=== PATIENT | female | born 1965 | race American Indian/Alaskan Native ===

== ENCOUNTER 2019-10-20 16:58 | Inpatient (IN) | payer OTHER ==
[2019-10-20] MEDS ORDERED: ASPIRIN 81 MG TAB CHEW PO ONE (17:07)
[2019-10-20] MEDS ORDERED: HEPARIN 1,000 UNIT/1 ML VIAL IV ONE (17:07)
[2019-10-20] MEDS ORDERED: SODIUM CHLORIDE 0.9% 1000 ML 1,000 ML IV ONE (17:07)
[2019-10-20] MEDS ORDERED: NITROGLYCERIN 0.4 MG TAB SUBL SL PRN (17:15)
[2019-10-20] MEDS ORDERED: MORPHINE 4 MG/1 ML INJ IV ONE (17:15)
--- NOTE | 2019-10-20 17:20 | Emergency Department Report ---
ED Chest Pain HPI - General Chief Complaint: Chest Pain Stated Complaint: CHEST PAIN Time Seen by Provider: 10/20/19 17:07 Source: patient Mode of arrival: Ambulatory Limitations: No Limitations - History of Present Illness Initial Comments: Patient is a 54-year-old F Spanish female who is presenting with chest pain. Patient states last night she had brief episodes of chest discomfort in the center chest. She assumed it was indigestion. She has been taken antacids. States pain resolved spontaneously last night. She was able to rest comfortably at night. This morning patient woke up fine but was at an appointment approximately hour ago when she started having chest pain again. She states that heavy sensation and burning sensation in the chest. She has some mild shortness of breath but denies diaphoresis or nausea vomiting. - Related Data Allergies Allergy/AdvReac Type Severity Reaction Status Date / Time Sulfa (Sulfonamide Allergy Unknown Verified 10/20/19 17:11 Antibiotics) Heart Score - HEART Score History: Highly suspicious EKG: Significant ST-depression Age: 45-65 Risk factors: 1-2 risk factors Troponin: < normal limit HEART Score: 6 ED Review of Systems ROS: Stated complaint: CHEST PAIN Other details as noted in HPI Comment: All other systems reviewed and negative ED Past Medical Hx - Past Medical History Hx Hypertension: Yes Hx Asthma: Yes Additional medical history: bronchitis - Surgical History Past Surgical History?: No ED Physical Exam - General Limitations: No Limitations General appearance: alert, anxious - Head Head exam: Present: atraumatic, normocephalic - Eye Eye exam: Present: normal appearance, PERRL, EOMI - ENT ENT exam: Present: mucous membranes moist - Neck Neck exam: Present: normal inspection - Respiratory Respiratory exam: Present: normal lung sounds bilaterally. Absent: respiratory distress, wheezes, rales, rhonchi - Cardiovascular Cardiovascular Exam: Present: regular rate, normal rhythm, normal heart sounds. Absent: systolic murmur, diastolic murmur, rubs, gallop - GI/Abdominal GI/Abdominal exam: Present: soft, normal bowel sounds. Absent: distended, tenderness, guarding, rebound - Extremities Exam Extremities exam: Present: normal inspection - Back Exam Back exam: Present: normal inspection - Neurological Exam Neurological exam: Present: alert, oriented X3 - Psychiatric Psychiatric exam: Present: normal affect, normal mood - Skin Skin exam: Present: warm, dry, intact, normal color. Absent: rash KALPANA score - Kalpana Score Age > 65: (0) No Aspirin use within the Past 7 Days: (0) No 3 or more CAD Risk Factors: (0) No 2 or more Angina events in past 24 hrs: (1) Yes Known CAD with more than 50% Stenosis: (0) No Elevated Cardiac Markers: (0) No ST Deviation Greater than 0.5mm: (0) No KALPANA Score: 1 ED Medical Decision Making - EKG Data -: EKG Interpreted by Me - EKG Data 10/20/19 17:20 EKG shows sinus rhythm at a rate of 99. Shirley is normal intervals are normal. There is ST elevation in the inferior leads. ST depression in V1 to V2. There is a consistent with an inferior infarct. - Medical Decision Making EKG was sent to our concrete floor installer and he agrees that the patient is having a STEMI. Patient will be given aspirin and a heparin bolus and the STEMI team has been activated. Critical care attestation.: If time is entered above; I have spent that time in minutes in the direct care of this critically ill patient, excluding procedure time. ED Disposition Clinical Impression: STEMI (ST elevation myocardial infarction) Qualifiers: Involved coronary artery: unspecified coronary artery Qualified Code(s): I21.3 - ST elevation (STEMI) myocardial infarction of unspecified site Disposition: OP ADMIT IP TO THIS HOSP Is pt being admited?: Yes Does the pt Need Aspirin: No Condition: Stable Time of Disposition: 17:21
[2019-10-20 17:29] LABS: Basophils # (Auto) 0.1 K/mm3 (0.0-0.1); Basophils % (Auto) 1.5 % (0.0-1.8); Eosinophils # (Auto) 0.2 K/mm3 (0.0-0.4); Eosinophils % (Auto) 3.1 % (0.0-4.3); Hematocrit 30.3 % (30.3-42.9); Hemoglobin 9.9 gm/dl (10.1-14.3); Lymphocytes # (Auto) 3.1 K/mm3 (1.2-5.4); Lymphocytes % (Auto) 42.2 % (13.4-35.0); Mean Corpuscular HGB Conc 33 % (30-34); Mean Corpuscular Volume 88 fl (79-97); Monocytes # (Auto) 0.7 K/mm3 (0.0-0.8); Monocytes % (Auto) 9.9 % (0.0-7.3); Platelet Count 557 K/mm3 (140-440); Red Blood Count 3.44 M/mm3 (3.65-5.03); Red Cell Distribution Width 18.4 % (13.2-15.2)
[2019-10-20] MEDS ORDERED: HEPARIN/NS 5000 UNIT/500ML 1,000 ML IR ONE (17:37)
[2019-10-20] MEDS ORDERED: NITROGLYCERIN SYRINGE 3 ML ONE (17:38)
[2019-10-20] MEDS ORDERED: LIDOCAINE (2%) 20 MG/1 ML VIAL 20 ML MDV INFILTRATI ONE (17:38)
[2019-10-20] MEDS ORDERED: HEPARIN 10,000 UNITS/10 ML VIAL ONE (17:49)
[2019-10-20] MEDS: fentaNYL 100 MCG/2 ML INJ ONE ×2 (17:51→18:08)
[2019-10-20 17:53] LABS: Creatine Kinase MB 2.1 ng/mL (0.0-4.0)
[2019-10-20] MEDS: MIDAZOLAM 2 MG/2 ML INJ ONE ×2 (17:53→18:08)
[2019-10-20 17:54] LABS: BUN/Creatinine Ratio 13; Blood Urea Nitrogen 8 mg/dL (7-17); Hemolysis Index 34
[2019-10-20] MEDS: VERAPAMIL 5 MG/2 ML INJ ONE ×2 (17:54→17:58)
[2019-10-20] MEDS: HEPARIN 10,000 UNITS/10 ML VIAL ONE ×5 (17:55→19:34)
[2019-10-20] MEDS ORDERED: HEPARIN/NS 5000 UNIT/500ML 500 ML IR ONE (17:59)
[2019-10-20 18:06] LABS: INR 0.94 (0.87-1.13)
[2019-10-20 18:07] LABS: Partial Thromboplastin Time 31.9 Sec. (24.2-36.6)
[2019-10-20] MEDS ORDERED: SODIUM CHLORIDE 0.9% 1000 ML 1,000 ML ONE (18:28)
[2019-10-20] MEDS: MORPHINE 10 MG/1 ML INJ ONE ×2 (18:36→18:41)
[2019-10-20] MEDS ORDERED: ATROPINE 0.1% (1 MG/10 ML) CARDIAC SYRINGE ONE ×2 (19:07→19:16)
[2019-10-20] MEDS ORDERED: DOPamine/D5W 800 MG/250 ML 800 MG/250 ML BAG IV ONE (19:09)
[2019-10-20] MEDS ORDERED: LIDOCAINE PF 100 MG/5 ML (CARDIAC SYRINGE) IV ONE (19:16)
[2019-10-20] MEDS ORDERED: EPINEPHrine 1:10,000 1 MG/10 ML SYRINGE ONE (19:16)
[2019-10-20] MEDS ORDERED: PHENYLEPHRINE/NS 1,000 MCG/10 ML SYRINGE (OR USE) IV ONE (19:16)
[2019-10-20] MEDS ORDERED: ALBUTEROL 2.5 MG/3 ML NEBU IH PRN (19:21)
--- NOTE | 2019-10-20 19:23 | History and Physical Report ---
History of Present Illness Chief complaint: My chest hurts History of present illness: 54 YO Female with HTN, Asthma presents to ED for evaluation. Patient states that she has experienced pain in her chest over the past 1 day with worsening symptoms over the past 8 hours. Patient states that she initially thought that her pain was due to acid indigestion and took several antacid tablets with mild improvement of symptoms. Patient states that she awoke this morning with persistently worsening symptoms. Patient states that her pain is 6/10, midsternal, nonradiating, worsened with exertion, were relieved with rest, crushing in nature, sharp. Patient transported to [facility] via private vehicle for further care and evaluation. Patient seen and evaluated in the emergency department. Lab and imaging studies reviewed. EKG revealed evidence of ST elevation [place]. Cardiology team consulted in ED. Patient taken urgently to cardiac Architectural Sales Consultant for cardiac intervention. Patient denies fever, chills, productive cough, unilateral leg swelling, prolonged travel/immobility, skin rash, individual/family history of DVT/bleeding/blood clotting disorders, bright red blood per rectum, trauma, or known ill contacts. No prior admission for review. No medication listed at time of admission for reconciliation. Past History Past Medical History: hypertension, other (See HPI) Past Surgical History: No surgical history, Other (Reviewed) Social history: single. denies: smoking, alcohol abuse, prescription drug abuse Family history: hypertension Medications and Allergies Allergies Allergy/AdvReac Type Severity Reaction Status Date / Time Sulfa (Sulfonamide Allergy Unknown Verified 10/20/19 17:18 Antibiotics) Active Meds: Active Medications Sodium Chloride (Nacl 0.9% 1000 Ml) 1,000 mls @ 42 mls/hr IV ONCE ONE Stop: 10/21/19 16:55 Last Admin: 10/20/19 17:22 Dose: 42 mls/hr Documented by: Nitroglycerin (Nitrostat) 0.4 mg SL .Q5MIN PRN PRN Reason: Chest Pain Last Admin: 10/20/19 17:25 Dose: 0.4 mg Documented by: Sodium Chloride (Sodium Chloride Flush Syringe 10 Ml) 10 ml IV BID CHUCHO Sodium Chloride (Sodium Chloride Flush Syringe 10 Ml) 10 ml IV PRN PRN PRN Reason: LINE FLUSH Review of Systems Constitutional: no weight loss, no weight gain, no fever, no chills Ears, nose, mouth and throat: no ear pain, no ear discharge, no tinnitis, no nose pain Breasts: no change in shape, no mass Cardiovascular: chest pain, no orthopnea, no palpitations, no rapid/irregular heart beat, no edema, no syncope Respiratory: no cough, no cough with sputum Gastrointestinal: no abdominal pain, no nausea, no diarrhea, no constipation Genitourinary Female: no dysmenorrhea, no pelvic pain, no flank pain, no dysuria Rectal: no pain, no incontinence, no bleeding Musculoskeletal: no neck stiffness, no neck pain, no shooting arm pain, no low back pain Integumentary: no rash, no pruritis, no redness, no sores, no jaundice Neurological: no head injury, no paralysis, no parathesias, no seizures, no syncope, no tremors Psychiatric: no anxiety, no memory loss, no change in sleep habits, no hypersomnia, no change in appetite, no change in libido Endocrine: no cold intolerance, no excessive thirst, no polydipsia, no polyuria Hematologic/Lymphatic: no easy bruising, no easy bleeding Allergic/Immunologic: no urticaria, no allergic rhinitis, no persistent infections, no angioedema Exam - Constitutional Vitals: Temp Pulse Resp BP Pulse Ox 97.8 F 93 H 16 118/69 100 10/20/19 17:16 10/20/19 17:16 10/20/19 17:24 10/20/19 17:16 10/20/19 17:19 General appearance: Present: no acute distress - EENT Eyes: Present: PERRL ENT: hearing intact, clear oral mucosa - Neck Neck: Present: supple, normal ROM - Respiratory Respiratory effort: normal Respiratory: bilateral: CTA - Cardiovascular Heart Sounds: Present: S1 & S2. Absent: rub, click - Extremities Extremities: pulses symmetrical, No edema Peripheral Pulses: within normal limits - Abdominal General gastrointestinal: Present: soft, non-tender, non-distended, normal bowel sounds Female genitourinary: Present: normal - Integumentary Integumentary: Present: clear, warm, dry - Musculoskeletal Musculoskeletal: gait normal, strength equal bilaterally - Psychiatric Psychiatric: appropriate mood/affect, intact judgment & insight - Neurologic Neurologic: CNII-XII intact, moves all extremities Results - Labs CBC & Chem 7: 10/20/19 17:21 10/20/19 17:21 Labs: Abnormal lab results 10/20/19 10/20/19 Range/Units 17:21 17:21 RBC 3.44 L (3.65-5.03) M/mm3 Hgb 9.9 L (10.1-14.3) gm/dl RDW 18.4 H (13.2-15.2) % Plt Count 557 H (140-440) K/mm3 Lymph % (Auto) 42.2 H (13.4-35.0) % [place] % (Auto) 9.9 H (0.0-7.3) % Sodium 136 L (137-145) mmol/L Chloride 96.8 L (98-107) mmol/L Creatinine 0.6 L (0.7-1.2) mg/dL Glucose 144 H (65-100) mg/dL Assessment and Plan - Patient Problems (1) STEMI (ST elevation myocardial infarction) Current Visit: No Status: Acute Qualifiers: Involved coronary artery: unspecified coronary artery Qualified Code(s): I21.3 - ST elevation (STEMI) myocardial infarction of unspecified site Plan to address problem: Cardiology consulted in ED, lipid panel, statin therapy is indicated, patient underwent emergent cardiac cath for cardiac intervention. Anticoagulation as per cardiology team. CBC, CMP, (2) Hypertension Current Visit: Yes Status: Acute Qualifiers: Hypertension type: essential hypertension Qualified Code(s): I10 - Essential (primary) hypertension Plan to address problem: Monitor blood pressure every shift, supportive care, continue medical management. (3) Hyponatremia syndrome Current Visit: Yes Status: Acute Plan to address problem: IV fluid resuscitation therapy, BMP, repeat BMP in a.m. (4) Diastolic CHF Current Visit: Yes Status: Suspected Qualifiers: Heart failure chronicity: acute Qualified Code(s): I50.31 - Acute diastolic (congestive) heart failure Plan to address problem: Strict I's/O, daily weight, monitor urine output every shift, chest x-ray, cardiology consulted in ED, blood pressure control, afterload reduction. (5) DVT prophylaxis Current Visit: Yes Status: Acute Plan to address problem: SCD to bilateral lower extremities while in bed, anticoagulation as per cardiology team.
[2019-10-20] MEDS ORDERED: ALUM-MAG HYDROXIDE-SIMETHICONE 200-200-20MG/5ML ORAL LIQD 30 ML ONE (19:42)
[2019-10-20] MEDS ORDERED: CLOPIDOGREL 300 MG TAB ONE (19:42)
[2019-10-20] MEDS ORDERED: ACETAMINOPHEN 325 MG TAB PO PRN (19:49)
[2019-10-20] MEDS ORDERED: traMADol 50 MG TAB PO PRN (19:49)
[2019-10-20] MEDS ORDERED: HYDROcodone/ACETAMINOPHEN 5-325 MG TAB PO PRN (19:49)
[2019-10-20] MEDS ORDERED: HYDROmorphone 1 MG/1 ML INJ IV PRN (19:49)
[2019-10-20] MEDS ORDERED: SODIUM CHLORIDE 0.9% 1000 ML 1,000 ML IV SCH (20:00)
--- NOTE | 2019-10-20 20:40 | Consultation ---
HISTORY OF PRESENT ILLNESS: The patient is a 54-year-old -[place] female with history of hypertension, being followed at [facility], also history of asthma and COPD and chronic smoking, being followed at [facility]. She is getting rehabilitation for alcohol abuse. Presently, she is not drinking any alcohol. The patient started having anterior chest pain, which she thought acid reflux and did not pay much attention, pain got worse few hours prior to presentation to the Emergency Room. The patient is at a rehab center and the otr hazmat company driver drove her to the hospital and in the Emergency Room, she was noted to have ST elevations in the inferior leads consistent with acute inferior injury and the patient was taken to the catheterization laboratory on an emergency basis and underwent intervention of the occluded distal RCA successfully. The patient's past medical history is significant for history of essential hypertension on medication as far at [facility]. No history of diabetes mellitus, history of chronic smoking and history of asthma and COPD getting frequent inhalers and evaluation at [facility]. Denied any previous cardiac history. No history of myocardial infarction or congestive heart failure. SOCIAL HISTORY: She smokes on a regular basis. Did not drink in a while. Might have used drugs in the past, but not recently. REVIEW OF SYSTEMS: Denied any history of strokes or seizures. No history of peptic ulcer disease. No history of anemia or asthma history. No history of stomach ulcers. No history of PE. No history of kidney stones or kidney problems. No history of exertional chest pains in the past. The patient denies any unusual headaches, fever, cough or fever recently. No vomiting or diarrhea. Laboratory data showed in the Emergency Room, hemoglobin of 9.9 g/dL with hematocrit of 30.3%. Potassium is 3.9, BUN of 8, creatinine 0.6, glucose of 144 mg/dL. Total CPK in the Emergency Room was 105 with MB of 2.1. Troponin level in the Emergency Room was less than 0.010. ALLERGIES: SULFA. PHYSICAL EXAMINATION: GENERAL: Initially, the patient is complaining of chest pain. Telemetry showed sinus rhythm. HEENT: Conjunctivae pale. Sclerae are anicteric. NECK: Supple. HEART: Regular. No significant murmurs. ABDOMEN: Soft, but distended. EXTREMITIES: Without edema. NEUROLOGIC: Alert, oriented x 3. FINAL IMPRESSION: 1. Acute inferolateral myocardial infarction of few hours duration with onset of chest pain last night, but was prior to this admission. The patient was taken to the catheterization laboratory on an emergency basis, was noted to have occluded distal RCA and was intervened and a drug-eluting stent was inserted with KALPANA-3 flow zoroastrianism of the distal RCA. The patient does have significant proximal and mid RCA, which can be intervened at a later time. Left coronary system showed only mild disease. 2. History of essential hypertension. 3. Chronic smoking with underlying asthma and chronic obstructive pulmonary disease. 4. History of alcohol use, presently undergoing rehabilitation. 5. History of back problems and sciatica. The patient is reasonably stable after acute myocardial infarction. She is also on 10 mcg of dopamine for now, she is in sinus rhythm. The patient is chest pain free. Discussed with the patient and family about the diagnosis and explained to them the importance of keeping her in the CCU for the next 24-48 hours. She has underlying anemia. This needs to be monitored, etiology of which is not clear. Overall, prognosis is guarded. JOB# [id number] SATISH/NORMAN
--- NOTE | 2019-10-20 21:23 | Cardiac Catherization Report ---
CARDIAC CATHETERIZATION AND CORONARY INTERVENTION REPORT INDICATION FOR PROCEDURE: The patient is a 54-year-old -[place] Islander female who was getting rehabilitation for her alcohol use and she was having chest pain since last night and this evening it got worse and she was brought to the Emergency Room because of persistent chest pain and EKG showed sinus rhythm with ST elevations in the inferior leads consistent with acute inferior injury. The patient was taken to the catheterization laboratory on an emergency basis as a part of the STEMI protocol. The patient's other history included to alcohol abuse, presently undergoing rehabilitation includes chronic smoking with history of underlying COPD, asthma and history of essential hypertension. No previous history of strokes. Also, she says her stomach is bloated for last many months and presently having some stomach discomfort; otherwise, no history of strokes or seizures. No history of DVT or pulmonary emboli. The patient was brought to the catheterization laboratory on an emergency basis as a part of the STEMI protocol. EKG showing ST elevations in the inferior leads. The patient's pain started last night, but was for few hours prior to this presentation. DESCRIPTION OF PROCEDURE: The patient was taken to the catheterization laboratory on an emergency basis. The patient was informed of the diagnosis and explained of the procedure. The patient was evaluated for moderate sedation. She received morphine in the Emergency Room and also subsequently received 1 mg of Versed and fentanyl in the catheterization laboratory. The patient was prepared in a standard fashion with sterile drapes. Local anesthesia was given in the right wrist area. Right radial artery puncture was made using 21-gauge arterial puncture needle. A 5-Greek slender sheath was introduced. Initially, 5-Greek JR4 catheter was used to obtain the angiograms of the right coronary artery, which showed total occlusion of the distal RCA after the RV branch. LV branches and PDA are not visualized. Because of her EKG changes and persistent chest pain, the patient was given heparin as the anticoagulant. Initially 0.014 inch Matheny XT guidewire was advanced into the RCA without difficulty and lesion was dilated with the balloon. However, because of poor guide support, could not do any further intervention. There is some KALPANA 1-2 flow after the passage of the wire. Subsequently, angiograms of the left coronary artery were obtained using a JL3.5 catheter. Also, left ventriculogram was performed using the same catheter using hand injection in MCINTYRE and MONTENEGRIN projection. After obtaining the coronary angiograms of the left coronary artery, the intervention of the RCA was again attempted with AR1 guiding catheter, which did not give much support. Subsequently, ____ radial catheter was attempted and it gave reasonable support. A 0.014 inch Matheny XT guidewire was advanced into the PDA. However, there is a subtotal occlusion of the LV branch and difficult to manipulate the wire into the larger LV branch. A second Matheny XT guidewire was advanced into the LV branch successfully. Lesion was dilated with a 2.5 x 15 mm balloon few times, however, still there is only partial flow maybe KALPANA 1 to KALPANA 2 flow. Subsequently, a 2.5 x 23 mm Xience stent was inserted in the distal RCA across the PDA. This resulted in complete resolution of the lesion with KALPANA 3 flow. PDA and LV branch are well visualized with KALPANA 3 flow. Considering the difficulty of the procedure with poor guidewire support even though there is a chronic lesion in the proximal and mid RCA and it was felt this can be intervened at a later date. The patient received IV heparin throughout the procedure. The patient's blood pressure has been stable. Once re-perfusion was done, there is a vasovagal effect with low blood pressure and low heart rate. The patient received 1 dose of atropine along with starting at 10 mcg of dopamine. The patient's blood pressure has been stable around 100-110 mm of systolic pressure. Rhythm has been stable. The patient is completely pain free at the end of the procedure. FINDINGS: Following findings were noted. 1. Left ventriculogram done using hand injection showed normal sized left ventricle with good contractility; however, this is only limited study. We would recommend echocardiogram for further wall motion abnormalities. 2. Right coronary artery dominant vessel arises somewhat high and anteriorly in the aorta. This shows 60% lesion in the proximal and mid part with total occlusion of the distal RCA. As mentioned above, intervention of the distal RCA was performed with orthodoxy of the KALPANA 3 flow and resolution with the lesion being reduced to 0% from 100% occlusion. 3. Left coronary artery showed calcification in the left main and LAD area. Left main shows mild disease. Similarly LAD showed smooth proximal 30% lesion. LAD curves around the apex. Similarly large diagonal branch shows smooth 20-30% lesion. Ramus branch shows 30-40% lesion proximally. Marginal branches showed mild disease. 4. Collaterals, none. FINAL IMPRESSION: 1. Normal sized left ventricle with normal contractility. However, this is incomplete ventriculogram. We would recommend echocardiogram for further evaluation of the wall motion abnormalities. 2. Dominant RCA showed 60% long lesion in the proximal and mid part with total occlusion of the distal RCA as mentioned above. Intervention of the distal RCA was performed. We would further evaluate the proximal and mid RCA, may consider stenting later. Left coronary system shows only mild disease. The patient underwent successful intervention of the occluded distal RCA with full orthodoxy of LV branch and PDA with KALPANA 3 flow. The patient's chest pain completely resolved. The patient is on small dose of dopamine at the end of the procedure, most likely from reperfusion injury. Received atropine during the procedure. The patient was given IV heparin as anticoagulant. Radial approach was used for the access and radial band will be applied for hemostasis and received 600 mg of Plavix. The patient will be monitored in CCU for the next 24-48 hours. Findings were explained to the patient and family. JOB# [id number] SATISH/NORMAN
[2019-10-20 21:51] LABS: Basophils # (Auto) 0.2 K/mm3 (0.0-0.1); Basophils % (Auto) 1.4 % (0.0-1.8); Eosinophils # (Auto) 0.1 K/mm3 (0.0-0.4); Eosinophils % (Auto) 0.9 % (0.0-4.3); Hematocrit 32.5 % (30.3-42.9); Hemoglobin 10.5 gm/dl (10.1-14.3); Lymphocytes % (Auto) 16.9 % (13.4-35.0); Mean Corpuscular HGB Conc 32 % (30-34); Mean Corpuscular Volume 89 fl (79-97); Monocytes # (Auto) 0.7 K/mm3 (0.0-0.8); Monocytes % (Auto) 5.7 % (0.0-7.3); Platelet Count 521 K/mm3 (140-440); Red Blood Count 3.66 M/mm3 (3.65-5.03); Red Cell Distribution Width 18.8 % (13.2-15.2)
[2019-10-20 22:03] LABS: Creatine Kinase MB 54.5 ng/mL (0.0-4.0)
[2019-10-20 22:12] LABS: INR TNR (0.87-1.13); Partial Thromboplastin Time TNR Sec. (24.2-36.6)
[2019-10-20 22:25] LABS: Chol/HDL Ratio 2.96 %
--- NOTE | 2019-10-20 22:48 | XRay Report ---
CHEST 1 VIEW INDICATION / CLINICAL INFORMATION: MAIN: chest pain;Chest pain had episode yest. 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 COMPARISON: None available. FINDINGS: SUPPORT DEVICES: None. HEART / MEDIASTINUM: Moderately enlarged LUNGS / PLEURA: There is patchy consolidation in the right lung and more extensive predominantly inte rstitial consolidation in the left lung likely atypical pneumonia. No edema or effusions. No pneumoth orax. ADDITIONAL FINDINGS: No significant additional findings. IMPRESSION: 1 Suspect atypical pneumonia. Signer Name: Memo Olsen MD Signed: 10/20/2019 10:43 PM Workstation Name: [id number]
[2019-10-20] MEDS ORDERED: HEPARIN/ 0.45% NACL DRIP 25,000 UNIT/500 ML BAG IV SCH ×2 (23:00→23:45)
[2019-10-21 00:07] LABS: INR 1.02 (0.87-1.13)
[2019-10-21] MEDS: METOPROLOL TARTRATE 50 MG TAB PO SCH ×3 (00:08→21:19)
[2019-10-21 00:14] LABS: Creatine Kinase MB 102.2 ng/mL (0.0-4.0)
[2019-10-21 00:26] LABS: Partial Thromboplastin Time 115.1 Sec. (24.2-36.6)
[2019-10-21] MEDS: ONDANSETRON 4 MG/2 ML INJ IV PRN ×2 (02:09→02:12)
[2019-10-21 04:45] LABS: Basophils # (Auto) 0.1 K/mm3 (0.0-0.1); Basophils % (Auto) 1.2 % (0.0-1.8); Eosinophils # (Auto) 0.1 K/mm3 (0.0-0.4); Eosinophils % (Auto) 0.9 % (0.0-4.3); Hemoglobin 9.7 gm/dl (10.1-14.3); Lymphocytes % (Auto) 18.4 % (13.4-35.0); Mean Corpuscular HGB Conc 32 % (30-34); Mean Corpuscular Volume 91 fl (79-97); Monocytes # (Auto) 0.9 K/mm3 (0.0-0.8); Monocytes % (Auto) 8.1 % (0.0-7.3); Platelet Count 529 K/mm3 (140-440); Red Blood Count 3.32 M/mm3 (3.65-5.03); Red Cell Distribution Width 18.8 % (13.2-15.2)
--- NOTE | 2019-10-21 04:48 | XRay Report ---
CHEST 1 VIEW INDICATION / CLINICAL INFORMATION: post pci. COMPARISON: 10/20/2019 FINDINGS: SUPPORT DEVICES: None. HEART / MEDIASTINUM: No significant abnormality. LUNGS / PLEURA: Lungs and pleural spaces are now clear with no infiltrate, edema or effusion. No pneu mothorax. ADDITIONAL FINDINGS: No significant additional findings. IMPRESSION: 1 Improving chest Signer Name: Memo Olsen MD Signed: 10/21/2019 4:44 AM Workstation Name: [id number]
[2019-10-21 04:59] LABS: Creatine Kinase MB 106.8 ng/mL (0.0-4.0)
[2019-10-21 05:00] LABS: Alanine Aminotransferase 26 units/L (7-56); BUN/Creatinine Ratio 15; Blood Urea Nitrogen 9 mg/dL (7-17); Calcium 9.4 mg/dL (8.4-10.2); Hemolysis Index 0
[2019-10-21] MEDS ORDERED: ASPIRIN 81 MG TAB CHEW ONE (07:07)
[2019-10-21] MEDS ORDERED: HEPARIN 10,000 UNITS/10 ML VIAL ONE (07:07)
[2019-10-21] MEDS: CLOPIDOGREL 75 MG TAB PO SCH (09:49)
[2019-10-21] MEDS: ASPIRIN EC 325 MG TAB PO SCH (09:51)
[2019-10-21] MEDS: LOSARTAN 25 MG TAB PO SCH (09:51)
--- NOTE | 2019-10-21 10:38 | Progress Note ---
Assessment and Plan tte reviewed - EF 55-60%, impaired relaxation. Currently stable cardiac status. Cont present cardiac management, including ASA, Plavix, lipitor, lopressor, losartan. Pt may tx out of CCU to telemetry from cardiology standpoint. Anticipate d/c in AM. Smoking cessation strongly encouraged. The patient has been seen in conjunction with Dr. Praneeth Ware who agrees with the assessment and plan of care. - Patient Problems (1) STEMI (ST elevation myocardial infarction) Current Visit: Yes Status: Acute (2) CAD (coronary artery disease) Current Visit: Yes Status: Chronic (3) Stented coronary artery Current Visit: Yes Status: Chronic (4) Hypertension Current Visit: Yes Status: Chronic Qualifiers: Hypertension type: essential hypertension Qualified Code(s): I10 - Essential (primary) hypertension (5) COPD (chronic obstructive pulmonary disease) Current Visit: Yes Status: Chronic (6) Tobacco use Current Visit: Yes Status: Chronic (7) Hyperlipidemia Current Visit: Yes Status: Chronic Subjective Date of service: 10/21/19 Principal diagnosis: STEMI Interval history: pt resting in bed, no current complaints, no chest pain. in SR on tele. Objective Last Vital Signs Temp 97.5 F L 10/21/19 08:00 Pulse 97 H 10/21/19 09:51 Resp 17 10/21/19 09:15 BP 109/67 10/21/19 09:51 Pulse Ox 100 10/21/19 09:15 - Physical Examination General: No Apparent Distress HEENT: Positive: PERRL, Normocephaly, Mucus Membranes Moist Neck: Positive: neck supple, trachea midline Cardiac: Positive: Reg Rate and Rhythm, S1/S2 Lungs: Positive: Decreased Breath Sounds Neuro: Positive: Grossly Intact Abdomen: Negative: Tender Skin: Negative: Rash Incision: Cardiac Cath Site (right radial c/d/i, no bleeding or hematoma) Extremities: Absent: edema - Labs and Meds Cardiac Enzymes 10/20/19 10/20/19 10/20/19 Range/Units 17:21 21:15 23:08 AST (5-40) units/L CK-MB (CK-2) 2.1 54.5 H 102.2 H (0.0-4.0) ng/mL 10/21/19 Range/Units 04:14 AST 58 H (5-40) units/L CK-MB (CK-2) 106.8 H (0.0-4.0) ng/mL Coagulation 10/20/19 10/20/19 10/20/19 Range/Units 17:21 21:30 23:08 PT 12.7 TNR 13.5 (12.2-14.9) Sec. INR 0.94 TNR 1.02 (0.87-1.13) APTT 31.9 TNR 115.1 H* (24.2-36.6) Sec. Lipids 10/20/19 Range/Units 21:15 Triglycerides 71 (2-149) mg/dL Cholesterol 231 H (50-199) mg/dL HDL Cholesterol 78 H (40-59) mg/dL Cholesterol/HDL Ratio 2.96 % CBC 10/20/19 10/20/19 10/21/19 Range/Units 17:21 21:30 04:14 WBC 7.3 11.7 H 10.7 (4.5-11.0) K/mm3 RBC 3.44 L 3.66 3.32 L (3.65-5.03) M/mm3 Hgb 9.9 L 10.5 9.7 L (10.1-14.3) gm/dl Hct 30.3 32.5 30.0 L (30.3-42.9) % Plt Count 557 H 521 H 529 H (140-440) K/mm3 Lymph # 3.1 2.0 2.0 (1.2-5.4) K/mm3 [place] # 0.7 0.7 0.9 H (0.0-0.8) K/mm3 Eos # 0.2 0.1 0.1 (0.0-0.4) K/mm3 Baso # 0.1 0.2 H 0.1 (0.0-0.1) K/mm3 Comprehensive Metabolic Panel 10/20/19 10/21/19 Range/Units 17:21 04:14 Sodium 136 L 137 (137-145) mmol/L Potassium 3.9 4.9 D (3.6-5.0) mmol/L Chloride 96.8 L 97.7 L (98-107) mmol/L Carbon Dioxide 22 22 (22-30) mmol/L BUN 8 9 (7-17) mg/dL Creatinine 0.6 L 0.6 L (0.7-1.2) mg/dL Glucose 144 H 118 H (65-100) mg/dL Calcium 10.0 9.4 (8.4-10.2) mg/dL AST 58 H (5-40) units/L ALT 26 (7-56) units/L Alkaline Phosphatase 136 H (35-129) units/L Total Protein 6.9 (6.3-8.2) g/dL Albumin 4.0 (3.9-5) g/dL - Imaging and Cardiology EKG: report reviewed, image reviewed Echo: report reviewed - Telemetry EKG Rhythm: Sinus Rhythm
--- NOTE | 2019-10-21 13:29 | Progress Note ---
Assessment and Plan / STEMI (ST elevation myocardial infarction) Cardiology consulted in ED, patient underwent emergent cardiac cath with PCI to distal RCA. cont aspirin, statin, plavix / Hypertension Monitor blood pressure every shift, supportive care, continue medical management. / Hyponatremia cont IV fluid resuscitation therapy, /Diastolic CHF Strict I's/O, daily weight, monitor urine output every shift, blood pressure control, afterload reduction. / DVT prophylaxis SCD to bilateral lower extremities while in bed, anticoagulation as per cardiology team. Subjective Date of service: 10/21/19 Principal diagnosis: STEMI Interval history: patient seen and examined denies any chest pain, c/o wheezing s/p PCI yesterday Objective - Constitutional Vitals: Vital Signs - 12hr 10/21/19 10/21/19 10/21/19 01:30 01:45 02:00 Temperature Pulse Rate 86 82 Respiratory 15 20 Rate Blood Pressure 111/74 121/76 118/73 O2 Sat by Pulse 97 90 97 Oximetry 10/21/19 10/21/19 10/21/19 02:15 02:30 02:45 Temperature Pulse Rate 86 83 83 Respiratory 21 14 14 Rate Blood Pressure 124/77 104/65 104/68 O2 Sat by Pulse 97 97 96 Oximetry 10/21/19 10/21/19 10/21/19 03:00 03:15 03:30 Temperature Pulse Rate 80 80 79 Respiratory 12 12 14 Rate Blood Pressure 110/77 101/70 115/67 O2 Sat by Pulse 96 97 97 Oximetry 10/21/19 10/21/19 10/21/19 03:45 04:00 04:14 Temperature 98.7 F Pulse Rate 83 81 Respiratory 14 12 15 Rate Blood Pressure 116/69 107/73 O2 Sat by Pulse 97 97 96 Oximetry 10/21/19 10/21/19 10/21/19 04:15 04:30 04:45 Temperature Pulse Rate 79 80 90 Respiratory 13 12 19 Rate Blood Pressure 116/77 120/72 120/72 O2 Sat by Pulse 98 98 90 Oximetry 10/21/19 10/21/19 10/21/19 05:00 05:15 05:31 Temperature Pulse Rate 89 90 86 Respiratory 15 16 15 Rate Blood Pressure 106/64 106/64 106/64 O2 Sat by Pulse 97 97 100 Oximetry 10/21/19 10/21/19 10/21/19 05:45 06:00 06:15 Temperature Pulse Rate 84 84 86 Respiratory 15 15 14 Rate Blood Pressure 106/64 109/61 109/61 O2 Sat by Pulse 98 99 99 Oximetry 10/21/19 10/21/19 10/21/19 06:31 06:45 07:00 Temperature Pulse Rate 87 112 H 101 H Respiratory 15 20 28 H Rate Blood Pressure 109/61 109/61 114/68 O2 Sat by Pulse 92 88 98 Oximetry 10/21/19 10/21/19 10/21/19 07:15 07:31 07:45 Temperature Pulse Rate 98 H 96 H 97 H Respiratory 20 18 17 Rate Blood Pressure 114/68 114/68 114/68 O2 Sat by Pulse 100 99 99 Oximetry 10/21/19 10/21/19 10/21/19 08:00 08:01 08:15 Temperature 97.5 F L Pulse Rate 95 H 94 H 111 H Respiratory 22 22 19 Rate Blood Pressure 114/68 114/68 O2 Sat by Pulse 91 91 98 Oximetry 10/21/19 10/21/19 10/21/19 08:31 08:45 09:00 Temperature Pulse Rate 95 H 87 96 H Respiratory 17 16 24 Rate Blood Pressure 108/63 108/63 109/67 O2 Sat by Pulse 99 95 97 Oximetry 10/21/19 10/21/19 10/21/19 09:07 09:15 09:31 Temperature Pulse Rate 94 H 97 H Respiratory 17 19 Rate Blood Pressure 109/67 109/67 O2 Sat by Pulse 98 100 99 Oximetry 10/21/19 10/21/19 10/21/19 09:45 09:49 09:51 Temperature Pulse Rate 95 H 96 H 97 H Respiratory 17 Rate Blood Pressure 109/67 109/67 109/67 O2 Sat by Pulse 98 Oximetry 10/21/19 10/21/19 10/21/19 10:00 10:15 10:31 Temperature Pulse Rate 93 H 90 89 Respiratory 28 H 16 15 Rate Blood Pressure 111/73 111/73 111/73 O2 Sat by Pulse 99 100 100 Oximetry 10/21/19 10/21/19 10:45 12:00 Temperature 98.3 F Pulse Rate 90 Respiratory 17 Rate Blood Pressure 111/73 O2 Sat by Pulse 99 Oximetry General appearance: Present: no acute distress, well-nourished - EENT Eyes: PERRL, EOM intact ENT: hearing intact, clear oral mucosa Ears: bilateral: normal - Neck Neck: supple, normal ROM - Respiratory Respiratory effort: normal Respiratory: bilateral: wheezing - Cardiovascular Rhythm: regular Heart Sounds: Present: S1 & S2. Absent: gallop, rub Extremities: pulses intact, No edema, normal color, Full ROM - Gastrointestinal General gastrointestinal: Present: soft, non-tender, non-distended, normal bowel sounds - Integumentary Integumentary: clear, warm, dry - Musculoskeletal Musculoskeletal: 1, strength equal bilaterally - Neurologic Neurologic: moves all extremities - Psychiatric Psychiatric: memory intact, appropriate mood/affect, intact judgment & insight - Labs CBC & Chem 7: 10/22/19 05:39 10/21/19 04:14 Labs: Abnormal lab results 10/20/19 10/20/19 10/20/19 Range/Units 17:21 17:21 21:15 WBC (4.5-11.0) K/mm3 RBC 3.44 L (3.65-5.03) M/mm3 Hgb 9.9 L (10.1-14.3) gm/dl Hct (30.3-42.9) % RDW 18.4 H (13.2-15.2) % Plt Count 557 H (140-440) K/mm3 Lymph % (Auto) 42.2 H (13.4-35.0) % [place] % (Auto) 9.9 H (0.0-7.3) % [place] # (0.0-0.8) K/mm3 Baso # (0.0-0.1) K/mm3 Seg Neutrophils % (40.0-70.0) % Seg Neutrophils # (1.8-7.7) K/mm3 APTT (24.2-36.6) Sec. Sodium 136 L (137-145) mmol/L Chloride 96.8 L (98-107) mmol/L Creatinine 0.6 L (0.7-1.2) mg/dL Glucose 144 H (65-100) mg/dL AST (5-40) units/L Alkaline Phosphatase (35-129) units/L Total Creatine Kinase 436 H (30-135) units/L CK-MB (CK-2) 54.5 H (0.0-4.0) ng/mL CK-MB (CK-2) Rel Index 12.5 H (0-4) Troponin T 0.235 H* D (0.00-0.029) ng/mL Cholesterol 231 H (50-199) mg/dL LDL Cholesterol Direct 133 H (50-130) mg/dL HDL Cholesterol 78 H (40-59) mg/dL 10/20/19 10/20/19 10/20/19 Range/Units 21:30 23:08 23:08 WBC 11.7 H (4.5-11.0) K/mm3 RBC (3.65-5.03) M/mm3 Hgb (10.1-14.3) gm/dl Hct (30.3-42.9) % RDW 18.8 H (13.2-15.2) % Plt Count 521 H (140-440) K/mm3 Lymph % (Auto) (13.4-35.0) % [place] % (Auto) (0.0-7.3) % [place] # (0.0-0.8) K/mm3 Baso # 0.2 H (0.0-0.1) K/mm3 Seg Neutrophils % 75.1 H (40.0-70.0) % Seg Neutrophils # 8.8 H (1.8-7.7) K/mm3 APTT 115.1 H* (24.2-36.6) Sec. Sodium (137-145) mmol/L Chloride (98-107) mmol/L Creatinine (0.7-1.2) mg/dL Glucose (65-100) mg/dL AST (5-40) units/L Alkaline Phosphatase (35-129) units/L Total Creatine Kinase 692 H (30-135) units/L CK-MB (CK-2) 102.2 H (0.0-4.0) ng/mL CK-MB (CK-2) Rel Index 14.7 H (0-4) Troponin T 0.533 H* D (0.00-0.029) ng/mL Cholesterol (50-199) mg/dL LDL Cholesterol Direct (50-130) mg/dL HDL Cholesterol (40-59) mg/dL 10/21/19 10/21/19 10/21/19 Range/Units 04:14 04:14 07:13 WBC (4.5-11.0) K/mm3 RBC 3.32 L (3.65-5.03) M/mm3 Hgb 9.7 L (10.1-14.3) gm/dl Hct 30.0 L (30.3-42.9) % RDW 18.8 H (13.2-15.2) % Plt Count 529 H (140-440) K/mm3 Lymph % (Auto) (13.4-35.0) % [place] % (Auto) 8.1 H (0.0-7.3) % [place] # 0.9 H (0.0-0.8) K/mm3 Baso # (0.0-0.1) K/mm3 Seg Neutrophils % 71.4 H (40.0-70.0) % Seg Neutrophils # (1.8-7.7) K/mm3 APTT (24.2-36.6) Sec. Sodium (137-145) mmol/L Chloride 97.7 L (98-107) mmol/L Creatinine 0.6 L (0.7-1.2) mg/dL Glucose 118 H (65-100) mg/dL AST 58 H (5-40) units/L Alkaline Phosphatase 136 H (35-129) units/L Total Creatine Kinase 707 H (30-135) units/L CK-MB (CK-2) 106.8 H (0.0-4.0) ng/mL CK-MB (CK-2) Rel Index 15.1 H (0-4) Troponin T 0.619 H* 1.590 H* D (0.00-0.029) ng/mL Cholesterol (50-199) mg/dL LDL Cholesterol Direct (50-130) mg/dL HDL Cholesterol (40-59) mg/dL - Imaging and cardiology Chest x-ray: report reviewed
--- NOTE | 2019-10-21 13:32 | Consultation ---
History of Present Illness Consult date: 10/21/19 Requesting physician: MIRIAN LANGE Reason for consult: other (STEMI) History of present illness: PULMONARY/CCM CONSULT NOTE (Full dictation # ) Please see dictated notes for full details Past History Past Medical History: hypertension, other (See HPI) Past Surgical History: No surgical history, Other (Reviewed) Social history: single. denies: smoking, alcohol abuse, prescription drug abuse Family history: hypertension Medications and Allergies Allergies Allergy/AdvReac Type Severity Reaction Status Date / Time Sulfa (Sulfonamide Allergy Unknown Verified 10/20/19 17:18 Antibiotics) Active Meds: Active Medications Acetaminophen (Tylenol) 650 mg PO Q4H PRN PRN Reason: Pain MILD(1-3)/Fever >100.5/[place] Acetaminophen/Hydrocodone Bitart ([place] 5/325) 1 each PO Q6H PRN PRN Reason: Pain, Moderate (4-6) Last Admin: 10/20/19 23:31 Dose: 1 each Documented by: Albuterol (Proventil) 2.5 mg IH Q3HRT PRN PRN Reason: Shortness Of Breath Albuterol/Ipratropium (Duoneb *Not For Prn Use*) 1 ampul IH TIDRT [facility] Aspirin (Ecotrin) 325 mg PO QDAY [facility] Last Admin: 10/21/19 09:51 Dose: 325 mg Documented by: Atorvastatin Calcium (Lipitor) 80 mg PO QHS [facility] Last Admin: 10/20/19 23:17 Dose: 80 mg Documented by: Clopidogrel Bisulfate (Plavix) 75 mg PO QDAY [facility] Last Admin: 10/21/19 09:49 Dose: 75 mg Documented by: Hydromorphone HCl (Dilaudid) 0.5 mg IV Q3H PRN PRN Reason: Pain , Severe (7-10) Last Admin: 10/21/19 02:09 Dose: 0.5 mg Documented by: Sodium Chloride (Nacl 0.9% 1000 Ml) 1,000 mls @ 42 mls/hr IV ONCE ONE Stop: 10/21/19 16:55 Last Admin: 10/20/19 17:22 Dose: 42 mls/hr Documented by: Sodium Chloride (Nacl 0.9% 1000 Ml) 1,000 mls @ 100 mls/hr IV DIRECT [place] Losartan Potassium (Cozaar) 25 mg PO QDAY [facility] Last Admin: 10/21/19 09:51 Dose: 25 mg Documented by: Metoprolol Tartrate (Metoprolol) 25 mg PO BID [facility] Last Admin: 10/21/19 09:49 Dose: 25 mg Documented by: Nitroglycerin (Nitrostat) 0.4 mg SL .Q5MIN PRN PRN Reason: Chest Pain Last Admin: 10/20/19 17:25 Dose: 0.4 mg Documented by: Ondansetron HCl (Zofran) 4 mg IV Q8H PRN PRN Reason: N/V unrelieved by Reglan Last Admin: 10/21/19 02:12 Dose: 4 mg Documented by: Sodium Chloride (Sodium Chloride Flush Syringe 10 Ml) 10 ml IV BID [facility] Last Admin: 10/21/19 09:52 Dose: 10 ml Documented by: Sodium Chloride (Sodium Chloride Flush Syringe 10 Ml) 10 ml IV PRN PRN PRN Reason: LINE FLUSH Tramadol HCl (Ultram) 50 mg PO Q4H PRN PRN Reason: Pain, Mild (1-3) Physical Examination Vital signs: Vital Signs Temp Pulse Resp BP Pulse Ox 97.8 F 93 H 16 118/69 100 10/20/19 17:16 10/20/19 17:16 10/20/19 17:16 10/20/19 17:16 10/20/19 17:16 Results - Laboratory Findings CBC and BMP: 10/21/19 04:14 10/21/19 04:14 PT/INR, D-dimer PT 13.5 Sec. (12.2-14.9) 10/20/19 23:08 INR 1.02 (0.87-1.13) 10/20/19 23:08 Abnormal lab findings: Abnormal Labs 10/20/19 10/20/19 10/20/19 17:21 17:21 21:15 WBC RBC 3.44 L Hgb 9.9 L Hct RDW 18.4 H Plt Count 557 H Lymph % (Auto) 42.2 H [place] % (Auto) 9.9 H [place] # Baso # Seg Neutrophils % Seg Neutrophils # APTT Sodium 136 L Chloride 96.8 L Creatinine 0.6 L Glucose 144 H AST Alkaline Phosphatase Total Creatine Kinase 436 H CK-MB (CK-2) 54.5 H CK-MB (CK-2) Rel Index 12.5 H Troponin T 0.235 H* D Cholesterol 231 H LDL Cholesterol Direct 133 H HDL Cholesterol 78 H 10/20/19 10/20/19 10/20/19 21:30 23:08 23:08 WBC 11.7 H RBC Hgb Hct RDW 18.8 H Plt Count 521 H Lymph % (Auto) [place] % (Auto) [place] # Baso # 0.2 H Seg Neutrophils % 75.1 H Seg Neutrophils # 8.8 H APTT 115.1 H* Sodium Chloride Creatinine Glucose AST Alkaline Phosphatase Total Creatine Kinase 692 H CK-MB (CK-2) 102.2 H CK-MB (CK-2) Rel Index 14.7 H Troponin T 0.533 H* D Cholesterol LDL Cholesterol Direct HDL Cholesterol 10/21/19 10/21/19 10/21/19 04:14 04:14 07:13 WBC RBC 3.32 L Hgb 9.7 L Hct 30.0 L RDW 18.8 H Plt Count 529 H Lymph % (Auto) [place] % (Auto) 8.1 H [place] # 0.9 H Baso # Seg Neutrophils % 71.4 H Seg Neutrophils # APTT Sodium Chloride 97.7 L Creatinine 0.6 L Glucose 118 H AST 58 H Alkaline Phosphatase 136 H Total Creatine Kinase 707 H CK-MB (CK-2) 106.8 H CK-MB (CK-2) Rel Index 15.1 H Troponin T 0.619 H* 1.590 H* D Cholesterol LDL Cholesterol Direct HDL Cholesterol
[2019-10-21] MEDS: IPRATROPIUM/ALBUTEROL SULFATE 3 ML AMPUL.NEB IH SCH ×2 (14:11→20:10)
[2019-10-21] MEDS: FAMOTIDINE 20 MG TAB PO SCH (21:19)
[2019-10-21] MEDS ORDERED: diphenhydrAMINE 25 MG CAP PO PRN (21:30)
[2019-10-21] MEDS ORDERED: ENOXAPARIN 40 MG/0.4 ML INJ SUB-Q SCH (22:00)
[2019-10-22 06:01] LABS: Hematocrit 29.1 % (30.3-42.9); Hemoglobin 9.5 gm/dl (10.1-14.3)
--- NOTE | 2019-10-22 07:15 | Progress Note ---
Assessment and Plan (1) STEMI (ST elevation myocardial infarction) Current Visit: No Status: Acute Qualifiers: Involved coronary artery: unspecified coronary artery Qualified Code(s): I21.3 - ST elevation (STEMI) myocardial infarction of unspecified site Plan to address problem: Cardiology consulted in ED, lipid panel, statin therapy is indicated, patient underwent emergent cardiac cath for cardiac intervention. Anticoagulation as per cardiology team. CBC, CMP, (2) Hypertension Current Visit: Yes Status: Acute Qualifiers: Hypertension type: essential hypertension Qualified Code(s): I10 - Essential (primary) hypertension Plan to address problem: Monitor blood pressure every shift, supportive care, continue medical management. (3) Hyponatremia syndrome Current Visit: Yes Status: Acute Plan to address problem: IV fluid resuscitation therapy, BMP, repeat BMP in a.m. (4) Diastolic CHF Current Visit: Yes Status: Suspected Qualifiers: Heart failure chronicity: acute Qualified Code(s): I50.31 - Acute diastolic (congestive) heart failure Plan to address problem: Strict I's/O, daily weight, monitor urine output every shift, chest x-ray, cardiology consulted in ED, blood pressure control, afterload reduction. (5) DVT prophylaxis Current Visit: Yes Status: Acute Plan to address problem: SCD to bilateral lower extremities while in bed, anticoagulation as per cardiology team. Subjective Date of service: 10/22/19 Principal diagnosis: STEMI Interval history: Follow up: STEMI s/p PCI, tobacco use disorder Seen and examined. 24 hour events reviewed. No acute overnight events reported Vitals, labs, medications, chart reviewed. Objective Vital Signs - 12hr 10/21/19 10/21/19 10/21/19 19:49 20:00 23:00 Temperature 98.0 F Pulse Rate 82 86 Pulse Rate [ 90 Bilateral Throughout] Respiratory 20 Rate Respiratory 18 Rate [Bilateral Throughout] Blood Pressure 101/67 O2 Sat by Pulse 97 Oximetry 10/21/19 10/22/19 23:49 03:56 Temperature 98.3 F 98.9 F Pulse Rate 87 85 Pulse Rate [ Bilateral Throughout] Respiratory 16 18 Rate Respiratory Rate [Bilateral Throughout] Blood Pressure 118/73 101/62 O2 Sat by Pulse 93 95 Oximetry CBC and BMP: 10/22/19 05:39 10/21/19 04:14 ABG, PT/INR, D-dimer: PT/INR, D-dimer PT 13.5 Sec. (12.2-14.9) 10/20/19 23:08 INR 1.02 (0.87-1.13) 10/20/19 23:08 Abnormal lab findings: Abnormal Labs 10/20/19 10/20/19 10/20/19 17:21 17:21 21:15 WBC RBC 3.44 L Hgb 9.9 L Hct RDW 18.4 H Plt Count 557 H Lymph % (Auto) 42.2 H [place] % (Auto) 9.9 H [place] # Baso # Seg Neutrophils % Seg Neutrophils # APTT Sodium 136 L Chloride 96.8 L Creatinine 0.6 L Glucose 144 H AST Alkaline Phosphatase Total Creatine Kinase 436 H CK-MB (CK-2) 54.5 H CK-MB (CK-2) Rel Index 12.5 H Troponin T 0.235 H* D Cholesterol 231 H LDL Cholesterol Direct 133 H HDL Cholesterol 78 H 10/20/19 10/20/19 10/20/19 21:30 23:08 23:08 WBC 11.7 H RBC Hgb Hct RDW 18.8 H Plt Count 521 H Lymph % (Auto) [place] % (Auto) [place] # Baso # 0.2 H Seg Neutrophils % 75.1 H Seg Neutrophils # 8.8 H APTT 115.1 H* Sodium Chloride Creatinine Glucose AST Alkaline Phosphatase Total Creatine Kinase 692 H CK-MB (CK-2) 102.2 H CK-MB (CK-2) Rel Index 14.7 H Troponin T 0.533 H* D Cholesterol LDL Cholesterol Direct HDL Cholesterol 10/21/19 10/21/19 10/21/19 04:14 04:14 07:13 WBC RBC 3.32 L Hgb 9.7 L Hct 30.0 L RDW 18.8 H Plt Count 529 H Lymph % (Auto) [place] % (Auto) 8.1 H [place] # 0.9 H Baso # Seg Neutrophils % 71.4 H Seg Neutrophils # APTT Sodium Chloride 97.7 L Creatinine 0.6 L Glucose 118 H AST 58 H Alkaline Phosphatase 136 H Total Creatine Kinase 707 H CK-MB (CK-2) 106.8 H CK-MB (CK-2) Rel Index 15.1 H Troponin T 0.619 H* 1.590 H* D Cholesterol LDL Cholesterol Direct HDL Cholesterol 10/22/19 05:39 WBC RBC Hgb 9.5 L Hct 29.1 L RDW Plt Count 501 H Lymph % (Auto) [place] % (Auto) [place] # Baso # Seg Neutrophils % Seg Neutrophils # APTT Sodium Chloride Creatinine Glucose AST Alkaline Phosphatase Total Creatine Kinase CK-MB (CK-2) CK-MB (CK-2) Rel Index Troponin T Cholesterol LDL Cholesterol Direct HDL Cholesterol
[2019-10-22] MEDS: IPRATROPIUM/ALBUTEROL SULFATE 3 ML AMPUL.NEB IH SCH ×2 (08:04→14:47)
[2019-10-22] MEDS: METOPROLOL TARTRATE 50 MG TAB PO SCH (09:47)
[2019-10-22] MEDS: ASPIRIN EC 325 MG TAB PO SCH (09:47)
[2019-10-22] MEDS: FAMOTIDINE 20 MG TAB PO SCH (09:47)
[2019-10-22] MEDS: CLOPIDOGREL 75 MG TAB PO SCH (09:47)
[2019-10-22] MEDS: LOSARTAN 25 MG TAB PO SCH (09:47)
--- NOTE | 2019-10-22 10:40 | Progress Note ---
Assessment and Plan Currently stable cardiac status. Cont present cardiac management, including ASA 325, Plavix, lipitor, lopressor, losartan. Smoking cessation strongly encouraged. Pt may discharge home from cardiology standpoint. Follow up in our [place] office with Dr. Sen on 11/02/2019 @ 2:15PM. The patient has been seen in conjunction with Dr. Praneeth Ware who agrees with the assessment and plan of care. - Patient Problems (1) STEMI (ST elevation myocardial infarction) Current Visit: Yes Status: Acute (2) CAD (coronary artery disease) Current Visit: Yes Status: Chronic (3) Stented coronary artery Current Visit: Yes Status: Chronic (4) Hypertension Current Visit: Yes Status: Chronic Qualifiers: Hypertension type: essential hypertension Qualified Code(s): I10 - Essential (primary) hypertension (5) COPD (chronic obstructive pulmonary disease) Current Visit: Yes Status: Chronic (6) Tobacco use Current Visit: Yes Status: Chronic (7) Hyperlipidemia Current Visit: Yes Status: Chronic Subjective Date of service: 10/22/19 Principal diagnosis: STEMI Interval history: pt resting in bed, no current complaints, no chest pain. in SR on tele with infrequent 2-3 beat runs NSVT overnight, pt asymptomatic. Objective Last Vital Signs Temp 97.9 F 10/22/19 08:14 Pulse 106 H 10/22/19 09:47 Resp 15 10/22/19 08:14 BP 120/89 10/22/19 09:47 Pulse Ox 94 10/22/19 08:14 - Physical Examination General: No Apparent Distress HEENT: Positive: PERRL, Normocephaly, Mucus Membranes Moist Neck: Positive: neck supple, trachea midline Cardiac: Positive: Reg Rate and Rhythm, S1/S2 Lungs: Positive: Decreased Breath Sounds Neuro: Positive: Grossly Intact Abdomen: Negative: Tender Skin: Negative: Rash Incision: Cardiac Cath Site (right radial c/d/i, no bleeding or hematoma) Extremities: Absent: edema - Labs and Meds CBC 10/22/19 Range/Units 05:39 Hgb 9.5 L (10.1-14.3) gm/dl Hct 29.1 L (30.3-42.9) % Plt Count 501 H (140-440) K/mm3 - Imaging and Cardiology EKG: report reviewed, image reviewed Echo: report reviewed (EF 55-60%, impaired relaxation. ) - Telemetry EKG Rhythm: Sinus Rhythm
[2019-10-22 11:42] VITALS: BP 111/75
--- NOTE | 2019-10-22 13:37 | Discharge Summary ---
Providers - Providers Date of Admission: 10/20/19 19:21 Date of discharge: 10/22/19 Attending physician: MIRIAN LANGE 10/20/19 Consult to Cardiac Rehabilitation [CONS] Routine Reason For Exam: post pci 10/20/19 17:22 Consult to Physician [CONS] Urgent Comment: Consulting Provider: JUAN ALVAREZ Physician Instructions: Reason For Exam: stemi 10/21/19 13:36 Consult to Physician [CONS] Urgent Comment: Consulting Provider: GINGER LINDSEY Physician Instructions: Reason For Exam: STEMI Primary care physician: POTATO LOADER Hospitalization Condition: Stable Pertinent studies: CXR 2d echo Cardiac cath Hospital course: Discharge diagnosis: / STEMI (ST elevation myocardial infarction) Cardiology consulted in ED, patient underwent emergent cardiac cath with PCI to distal RCA. cont aspirin, statin, plavix / Hypertension Monitor blood pressure every shift, supportive care, continue medical management. / Hyponatremia, improved cont IV fluid resuscitation therapy, /Diastolic CHF managed with Strict I's/O, daily weight, monitor urine output every shift, blood pressure control, afterload reduction. / DVT prophylaxis SCD to bilateral lower extremities while in bed, Disposition: DC-30 STILL A PATIENT Time spent for discharge: 34 minutes Core Measure Documentation - Palliative Care Palliative Care/ Comfort Measures: Not Applicable - Core Measures Any of the following diagnoses?: none Exam - Constitutional Vitals: Temp Pulse Resp BP Pulse Ox 99.3 F 82 22 111/75 96 10/22/19 11:32 10/22/19 11:32 10/22/19 11:32 10/22/19 11:32 10/22/19 11:32 General appearance: Present: no acute distress, well-nourished - EENT Eyes: Present: PERRL ENT: hearing intact, clear oral mucosa - Neck Neck: Present: supple, normal ROM - Respiratory Respiratory effort: normal Respiratory: bilateral: CTA - Cardiovascular Heart Sounds: Present: S1 & S2. Absent: rub, click - Extremities Extremities: pulses symmetrical, No edema Peripheral Pulses: within normal limits - Abdominal General gastrointestinal: Present: soft, non-tender, non-distended, normal bowel sounds Female genitourinary: Present: normal - Integumentary Integumentary: Present: clear, warm, dry - Musculoskeletal Musculoskeletal: gait normal, strength equal bilaterally - Psychiatric Psychiatric: appropriate mood/affect, intact judgment & insight - Neurologic Neurologic: CNII-XII intact, moves all extremities Plan Activity: advance as tolerated Weight Bearing Status: Non-Weight Bearing Diet: low fat, low salt Follow up with: JUAN ALVAREZ MD [Staff Physician] - 7 Days (Follow up in our [place] office with Dr. Alvarez on 11/02/2019 @ 2:15PM. ) PRIMARY CARE, [Primary Care Provider] - 7 Days Prescriptions: AtorvaSTATin [Lipitor] 80 mg PO QHS #30 tablet Losartan [Cozaar] 25 mg PO QDAY #30 tablet Aspirin EC [Halfprin EC] 81 mg PO QDAY #30 tablet. Metoprolol [Lopressor TAB] 25 mg PO BID #60 tablet Clopidogrel [Plavix] 75 mg PO QDAY #30 tablet
== END 2019-10-22 17:06 | disposition home or self-care (01) | DRG 246 ==
LOC: ED 16:58 → CC1 19:21 → 4A 10-21 15:10
PROVIDERS: ADMIT Internal Medicine; ATTEND Internal Medicine
PROC: 027034Z Dilation of Coronary Artery, One Artery with Drug-eluting Intraluminal Device, Percutaneous Approach (ICD-10-PCS; principal; 2019-10-20)
PROC: 4A023N7 Measurement of Cardiac Sampling and Pressure, Left Heart, Percutaneous Approach (ICD-10-PCS; 2019-10-20)
PROC: B2111ZZ Fluoroscopy of Multiple Coronary Arteries using Low Osmolar Contrast (ICD-10-PCS; 2019-10-20)
PROC: B2151ZZ Fluoroscopy of Left Heart using Low Osmolar Contrast (ICD-10-PCS; 2019-10-20)
DX: I21.09 ST elevation (STEMI) myocardial infarction involving other coronary artery of anterior wall (principal); I50.31 Acute diastolic (congestive) heart failure; E87.1 Hypo-osmolality and hyponatremia; I11.0 Hypertensive heart disease with heart failure; F17.200 Nicotine dependence, unspecified, uncomplicated; J44.9 Chronic obstructive pulmonary disease, unspecified; I25.10 Atherosclerotic heart disease of native coronary artery without angina pectoris; E78.5 Hyperlipidemia, unspecified; Z82.49 Family history of ischemic heart disease and other diseases of the circulatory system; Z88.2 Allergy status to sulfonamides; Z95.5 Presence of coronary angioplasty implant and graft
CPT/HCPCS: 36415; 71045; 80048; 80053; 80061; 82550; 82553; 84484; 85014; 85018; 85025; 85049; 85520; 85610; 85730; 86850; 86900; 86901; 92941; 93005; 93010; 93306; 93458; 94640; 94760; 99406; G0378; A9270-GY; C1725; C1769; C1874; C1887; C1894; C9606; J0171; J0461; J1170; J1265; J1644; J1650; J2001; J2250; J2270; J2370; J2405; J3010; J7030; Q9967

== ENCOUNTER 2019-11-02 16:15 | Emergency (ER) | payer OTHER ==
--- NOTE | 2019-11-02 16:25 | Emergency Department Report ---
Blank Doc - Documentation Documentation: 54-year-old female that presents with n/v. This initial assessment/diagnostic orders/clinical plan/treatment(s) is/are subject to change based on patient's health status, clinical progression and re- assessment by fellow clinical providers in the ED. Further treatment and workup at subsequent clinical providers discretion. Patient/guardians urged not to elope from the ED as their condition may be serious if not clinically assessed and managed. Initial orders include: 1- Patient sent to [facility] for further evaluation and treatment 2- labs 3- UA
[2019-11-02 16:49] LABS: Basophils # (Auto) 0.1 K/mm3 (0.0-0.1); Basophils % (Auto) 1.3 % (0.0-1.8); Eosinophils # (Auto) 0.1 K/mm3 (0.0-0.4); Eosinophils % (Auto) 0.7 % (0.0-4.3); Hematocrit 30.9 % (30.3-42.9); Hemoglobin 10.9 gm/dl (10.1-14.3); Lymphocytes # (Auto) 1.1 K/mm3 (1.2-5.4); Lymphocytes % (Auto) 12.6 % (13.4-35.0); Mean Corpuscular HGB Conc 35 % (30-34); Mean Corpuscular Volume 86 fl (79-97); Monocytes # (Auto) 0.2 K/mm3 (0.0-0.8); Monocytes % (Auto) 2.8 % (0.0-7.3); Platelet Count 561 K/mm3 (140-440); Red Blood Count 3.61 M/mm3 (3.65-5.03); Red Cell Distribution Width 18.2 % (13.2-15.2)
[2019-11-02 17:03] LABS: Alanine Aminotransferase 14 units/L (7-56); Albumin 4.5 g/dL (3.9-5); BUN/Creatinine Ratio 20; Blood Urea Nitrogen 12 mg/dL (7-17); Calcium 9.5 mg/dL (8.4-10.2); Hemolysis Index 2
[2019-11-02 18:30] LABS: Bacteria,Urine 1+ /HPF (Negative); Bilirubin,Urine NEG (Negative); Blood,Urine SM (Negative); Color,Urine Straw (Yellow); Mucus,Urine FEW /HPF; Protein,Urine <15 mg/dL mg/dL (Negative); Urobilinogen,Urine < 2.0 mg/dL (<2.0)
[2019-11-02 19:57] VITALS: BP 147/88
--- NOTE | 2019-11-02 20:02 | Emergency Department Report ---
ED N/V/D HPI - General Chief complaint: Nausea/Vomiting/Diarrhea Stated complaint: FLU SYM Time Seen by Provider: 11/02/19 16:24 Source: patient Mode of arrival: Wheelchair Limitations: No Limitations - History of Present Illness MD complaint: nausea, vomiting, abdominal pain -: days(s) (2) Description of Vomiting: food contents Associated Abdominal Pain: Yes (Pain to the epigastric region with vomiting) Location: epigastric Radiation: none Severity: mild Quality: sharp (And burning) Consistency: intermittent Improves with: none Worsens with: other (Palpation) Associated Symptoms: nausea/vomiting. denies: diaphoresis, fever/chills, loss of appetite, malaise, shortness of breath, syncope - Related Data Previous Rx's Medication Instructions Recorded Last Taken Type Albuterol Sulfate [Ventolin HFA] 2 puff IH Q4H PRN #1 hfa.aer.ad 12/20/15 Unknown Rx Mvit-Mins/Folic Acid/Soy Isofl 1 each PO DAILY #30 tablet 07/06/17 Unknown Rx [One-A-Day Menopause Formula Tb] Thiamine [Vitamin B-1] 100 mg PO QDAY #15 tablet 07/06/17 Unknown Rx lisinopriL [Zestril TAB] 20 mg PO QDAY #30 tablet 07/06/17 Unknown Rx Acetaminophen [Acetaminophen TAB] 1,000 mg PO Q6HR PRN #30 tablet 05/07/19 Unknown Rx Metoclopramide [Reglan TAB] 10 mg PO Q6H PRN #30 tab 05/07/19 Unknown Rx Aspirin EC [Halfprin EC] 81 mg PO QDAY #30 tablet. 10/22/19 Unknown Rx AtorvaSTATin [Lipitor] 80 mg PO QHS #30 tablet 10/22/19 Unknown Rx Clopidogrel [Plavix] 75 mg PO QDAY #30 tablet 10/22/19 Unknown Rx Losartan [Cozaar] 25 mg PO QDAY #30 tablet 10/22/19 Unknown Rx Metoprolol [Lopressor TAB] 25 mg PO BID #60 tablet 10/22/19 Unknown Rx Hyoscyamine Subl [Levsin Sl 0.125 0.125 mg SL Q6HR PRN #20 tab 11/02/19 Unknown Rx TAB] Ondansetron [Zofran Odt] 4 mg PO Q8HR #20 tab.rapdis 11/02/19 Unknown Rx Allergies Allergy/AdvReac Type Severity Reaction Status Date / Time Sulfa (Sulfonamide Allergy Unknown Verified 10/22/19 11:01 Antibiotics) ED Review of Systems ROS: Stated complaint: FLU SYM Other details as noted in HPI Comment: All other systems reviewed and negative ED Past Medical Hx - Past Medical History Previous Medical History?: Yes Hx Hypertension: Yes Hx Psychiatric Treatment: Yes (schizophrenia,bipolar, depression) Hx Asthma: Yes Hx Tuberculosis: No Additional medical history: Left foot fx. - Surgical History Past Surgical History?: Yes Additional Surgical History: . TUBAL LIGATION - Social History Smoking Status: Never Smoker Substance Use Type: None - Medications Home Medications: Home Medications Medication Instructions Recorded Confirmed Last Taken Type Albuterol Sulfate [Ventolin HFA] 2 puff IH Q4H PRN #1 hfa.aer.ad 12/20/15 04/16/16 Unknown Rx Mvit-Mins/Folic Acid/Soy Isofl 1 each PO DAILY #30 tablet 07/06/17 Unknown Rx [One-A-Day Menopause Formula Tb] Thiamine [Vitamin B-1] 100 mg PO QDAY #15 tablet 07/06/17 Unknown Rx lisinopriL [Zestril TAB] 20 mg PO QDAY #30 tablet 07/06/17 Unknown Rx Acetaminophen [Acetaminophen TAB] 1,000 mg PO Q6HR PRN #30 tablet 05/07/19 Unknown Rx Metoclopramide [Reglan TAB] 10 mg PO Q6H PRN #30 tab 05/07/19 Unknown Rx Aspirin EC [Halfprin EC] 81 mg PO QDAY #30 tablet. 10/22/19 Unknown Rx AtorvaSTATin [Lipitor] 80 mg PO QHS #30 tablet 10/22/19 Unknown Rx Clopidogrel [Plavix] 75 mg PO QDAY #30 tablet 10/22/19 Unknown Rx Losartan [Cozaar] 25 mg PO QDAY #30 tablet 10/22/19 Unknown Rx Metoprolol [Lopressor TAB] 25 mg PO BID #60 tablet 10/22/19 Unknown Rx Hyoscyamine Subl [Levsin Sl 0.125 0.125 mg SL Q6HR PRN #20 tab 11/02/19 Unknown Rx TAB] Ondansetron [Zofran Odt] 4 mg PO Q8HR #20 tab.rapdis 11/02/19 Unknown Rx ED Physical Exam - General Limitations: No Limitations General appearance: alert, in no apparent distress - Head Head exam: Present: atraumatic, normocephalic - Eye Eye exam: Present: normal appearance, PERRL, EOMI - ENT ENT exam: Present: normal exam, mucous membranes moist, TM's normal bilaterally - Neck Neck exam: Present: normal inspection - Respiratory Respiratory exam: Present: normal lung sounds bilaterally. Absent: respiratory distress, wheezes, rales, chest wall tenderness, accessory muscle use - Cardiovascular Cardiovascular Exam: Present: regular rate, normal rhythm. Absent: systolic murmur, diastolic murmur, rubs, gallop - GI/Abdominal GI/Abdominal exam: Present: soft, normal bowel sounds. Absent: hyperactive bowel sounds, hypoactive bowel sounds, mass, bruit, pulsatile mass - Speculum exam: Absent: vaginal discharge - Extremities Exam Extremities exam: Present: normal inspection, normal capillary refill - Back Exam Back exam: Present: normal inspection, full ROM. Absent: CVA tenderness (R), CVA tenderness (L), muscle spasm, paraspinal tenderness - Neurological Exam Neurological exam: Present: alert, oriented X3, CN II-XII intact, normal gait - Psychiatric Psychiatric exam: Present: normal affect, normal mood - Skin Skin exam: Present: warm, dry, intact, normal color. Absent: rash ED Course Vital Signs 11/02/19 11/02/19 16:27 19:56 Temperature 98.1 F 98.3 F Pulse Rate 104 H 110 H Respiratory 18 18 Rate Blood Pressure 126/77 147/88 O2 Sat by Pulse 98 93 Oximetry ED Medical Decision Making - Lab Data Result diagrams: 11/02/19 16:37 11/02/19 16:37 - Radiology Data Radiology results: report reviewed - Medical Decision Making This patient presents with abdominal pain of unclear etiology. Their evaluation has not identified a emergent etiology for the abdominal pain. Specifically, given the very benign exam, normal laboratory studies, and lack of significant risk factors, I have a very low suspicion for appendicitis, ischemic bowel, bowel perforation, or any other life threatening disease. I have discussed with the patient the level of uncertainty with undifferentiated abdominal pain and clearly explained the need to follow-up as noted on the discharge instructions, or return to the Emergency Department immediately if the pain worsens, develops fever, persistent and uncontrollable vomiting, or for any new symptoms or concerns. I discussed with the patient that this presentation today for abdominal pain could represent a significant risk for an acute abdominal process. Although the tests in the ED were essentially normal, there is still a possibility of a process such as appendicitis, diverticulitis, cholecystitis, ulcer, early bowel obstruction, mesenteric ischemia, kidney stone, or even kidney infection which could subsequently cause disability or . The patient understands that they must return within 24 hours for a recheck or see their physician within 24 hours for re-exam due to the possibility of significant mana gical or medical process. Critical care attestation.: If time is entered above; I have spent that time in minutes in the direct care of this critically ill patient, excluding procedure time. ED Disposition Clinical Impression: Gastroenteritis, Abdominal pain Disposition: - TO HOME OR SELFCARE Is pt being admited?: No Does the pt Need Aspirin: No Condition: Stable Instructions: Acute Nausea and Vomiting (ED), Gastroenteritis (ED), Abdominal Pain (ED) Prescriptions: Hyoscyamine Subl [Levsin Sl 0.125 TAB] 0.125 mg SL Q6HR PRN #20 tab PRN Reason: abdominal pain Ondansetron [Zofran Odt] 4 mg PO Q8HR #20 tab.eliceo Referrals: PRIMARY CARE, [Primary Care Provider] - 3-5 Days [facility] [Provider Group] - 3-5 Days
[2019-11-02] MEDS ORDERED: NITROFURANTOIN MONOHYD/M-CRYST 100 MG CAP PO ONE (20:15)
== END 2019-11-02 20:51 | disposition home or self-care (01) ==
LOC: ED 16:15
DX: K21.9 Gastro-esophageal reflux disease without esophagitis (principal); I10 Essential (primary) hypertension; F20.89 Other schizophrenia; F31.9 Bipolar disorder, unspecified; J45.909 Unspecified asthma, uncomplicated; Z98.890 Other specified postprocedural states; Z79.899 Other long term (current) drug therapy; Z88.2 Allergy status to sulfonamides
CPT/HCPCS: 36415; 80053; 81001; 83690; 85025; 87086

== ENCOUNTER 2020-06-23 11:34 | Emergency (ER) | payer SELFPAY ==
--- NOTE | 2020-06-23 11:48 | Event Note ---
ED Screening Note Date of service: 06/23/20 Time: 11:47 ED Screening Note: Patient complains of chest pain, dizziness, shortness of breath x2 days History of NV and stent placement Denies swelling This initial assessment/diagnostic orders/clinical plan/treatment(s) is/are subject to change based on patients health status, clinical progression and re- assessment by fellow clinical providers in the ED. Further treatment and workup at subsequent clinical providers discretion. Patient/guardian urged not to elope from the ED as their condition may be serious if not clinically assessed and managed. Initial orders include: Main ED Labs EKG Chest x-ray
[2020-06-23 12:04] LABS: Basophils # (Auto) 0.1 K/mm3 (0.0-0.1); Basophils % (Auto) 1.7 % (0.0-1.8); Eosinophils # (Auto) 0.1 K/mm3 (0.0-0.4); Eosinophils % (Auto) 1.6 % (0.0-4.3); Hematocrit 30.8 % (30.3-42.9); Hemoglobin 10.2 gm/dl (10.1-14.3); Lymphocytes # (Auto) 1.5 K/mm3 (1.2-5.4); Lymphocytes % (Auto) 23.5 % (13.4-35.0); Mean Corpuscular HGB Conc 33 % (30-34); Mean Corpuscular Volume 86 fl (79-97); Monocytes # (Auto) 0.4 K/mm3 (0.0-0.8); Monocytes % (Auto) 6.6 % (0.0-7.3); Platelet Count 506 K/mm3 (140-440); Red Blood Count 3.57 M/mm3 (3.65-5.03); Red Cell Distribution Width 19.4 % (13.2-15.2)
--- NOTE | 2020-06-23 12:17 | Emergency Department Report ---
ED General Adult HPI - General Chief complaint: Weakness Stated complaint: DIZZY Time Seen by Provider: 06/23/20 11:47 Source: patient Mode of arrival: Ambulatory Limitations: No Limitations - History of Present Illness Initial comments: 54-year-old female, history of CAD with stents, bipolar disorder, COPD, presents to ED with complaint of dizziness, malaise, cold sweats. Patient states she checked her temperature but she did not have a fever. She also reports some nausea, however no vomiting. Patient denies any abdominal pain. She states she has been feeling like she has gas and bloating. Patient reported some mild chest pain across entire chest, and back pain. Patient reports tobacco use. Patient reports she stopped drinking alcohol. She denies any drug use. -: days(s) (2) Consistency: constant Improves with: none Worsens with: none Associated Symptoms: chest pain, fever/chills, malaise, nausea/vomiting. denies: cough, shortness of breath - Related Data Previous Rx's Medication Instructions Recorded Last Taken Type Albuterol Sulfate [Ventolin HFA] 2 puff IH Q4H PRN #1 hfa.aer.ad 12/20/15 Unknown Rx Mvit-Mins/Folic Acid/Soy Isofl 1 each PO DAILY #30 tablet 07/06/17 Unknown Rx [One-A-Day Menopause Formula Tb] Thiamine [Vitamin B-1] 100 mg PO QDAY #15 tablet 07/06/17 Unknown Rx lisinopriL [Zestril TAB] 20 mg PO QDAY #30 tablet 07/06/17 Unknown Rx Acetaminophen [Acetaminophen TAB] 1,000 mg PO Q6HR PRN #30 tablet 05/07/19 Unknown Rx Metoclopramide [Reglan TAB] 10 mg PO Q6H PRN #30 tab 05/07/19 Unknown Rx Aspirin EC [Halfprin EC] 81 mg PO QDAY #30 tablet. 10/22/19 Unknown Rx AtorvaSTATin [Lipitor] 80 mg PO QHS #30 tablet 10/22/19 Unknown Rx Clopidogrel [Plavix] 75 mg PO QDAY #30 tablet 10/22/19 Unknown Rx Losartan [Cozaar] 25 mg PO QDAY #30 tablet 10/22/19 Unknown Rx Metoprolol [Lopressor TAB] 25 mg PO BID #60 tablet 10/22/19 Unknown Rx Hyoscyamine Subl [Levsin Sl 0.125 0.125 mg SL Q6HR PRN #20 tab 11/02/19 Unknown Rx TAB] Ondansetron [Zofran Odt] 4 mg PO Q8HR #20 tab.rapdis 11/02/19 Unknown Rx Ondansetron [Zofran Odt] 4 mg PO Q8HR PRN #20 tab.rapdis 06/23/20 Unknown Rx Allergies Allergy/AdvReac Type Severity Reaction Status Date / Time Sulfa (Sulfonamide Allergy Unknown Verified 06/23/20 11:43 Antibiotics) ED Review of Systems ROS: Stated complaint: DIZZY Other details as noted in HPI Comment: All other systems reviewed and negative Constitutional: chills, malaise Respiratory: denies: cough, shortness of breath Cardiovascular: chest pain Gastrointestinal: nausea. denies: abdominal pain, vomiting, diarrhea Neurological: denies: headache ED Past Medical Hx - Past Medical History Hx Hypertension: Yes Hx Heart Attack/AMI: Yes Hx Psychiatric Treatment: Yes (schizophrenia,bipolar, depression) Hx Asthma: Yes Hx Tuberculosis: No Additional medical history: Left foot fx. ULCER ACID REFLUX - Surgical History Hx Coronary Stent: Yes Additional Surgical History: . TUBAL LIGATION - Social History Smoking Status: Former Smoker Substance Use Type: None - Medications Home Medications: Home Medications Medication Instructions Recorded Confirmed Last Taken Type Albuterol Sulfate [Ventolin HFA] 2 puff IH Q4H PRN #1 hfa.aer.ad 12/20/15 04/16/16 Unknown Rx Mvit-Mins/Folic Acid/Soy Isofl 1 each PO DAILY #30 tablet 07/06/17 Unknown Rx [One-A-Day Menopause Formula Tb] Thiamine [Vitamin B-1] 100 mg PO QDAY #15 tablet 07/06/17 Unknown Rx lisinopriL [Zestril TAB] 20 mg PO QDAY #30 tablet 07/06/17 Unknown Rx Acetaminophen [Acetaminophen TAB] 1,000 mg PO Q6HR PRN #30 tablet 05/07/19 Unknown Rx Metoclopramide [Reglan TAB] 10 mg PO Q6H PRN #30 tab 05/07/19 Unknown Rx Aspirin EC [Halfprin EC] 81 mg PO QDAY #30 10/22/19 Unknown Rx AtorvaSTATin [Lipitor] 80 mg PO QHS #30 tablet 10/22/19 Unknown Rx Clopidogrel [Plavix] 75 mg PO QDAY #30 tablet 10/22/19 Unknown Rx Losartan [Cozaar] 25 mg PO QDAY #30 tablet 10/22/19 Unknown Rx Metoprolol [Lopressor TAB] 25 mg PO BID #60 tablet 10/22/19 Unknown Rx Hyoscyamine Subl [Levsin Sl 0.125 0.125 mg SL Q6HR PRN #20 tab 11/02/19 Unknown Rx TAB] Ondansetron [Zofran Odt] 4 mg PO Q8HR #20 tab.rapdis 11/02/19 Unknown Rx Ondansetron [Zofran Odt] 4 mg PO Q8HR PRN #20 tab.rapdis 06/23/20 Unknown Rx ED Physical Exam - General Limitations: No Limitations General appearance: alert, in no apparent distress - Head Head exam: Present: atraumatic, normocephalic - Eye Eye exam: Present: normal appearance, EOMI - ENT ENT exam: Present: mucous membranes moist - Neck Neck exam: Present: normal inspection - Respiratory Respiratory exam: Present: normal lung sounds bilaterally. Absent: respiratory distress - Cardiovascular Cardiovascular Exam: Present: normal rhythm, tachycardia - GI/Abdominal GI/Abdominal exam: Present: soft. Absent: distended, tenderness - Extremities Exam Extremities exam: Present: normal inspection. Absent: pedal edema, calf tenderness - Neurological Exam Neurological exam: Present: alert, oriented X3 - Psychiatric Psychiatric exam: Present: normal affect, normal mood - Skin Skin exam: Present: warm, dry, intact, normal color ED Course Vital Signs 06/23/20 06/23/20 06/23/20 11:45 13:06 13:15 Temperature 97.6 F Pulse Rate 112 H 91 H Respiratory 18 28 H Rate Blood Pressure 111/84 123/72 125/73 06/23/20 06/23/20 06/23/20 13:30 13:45 14:00 Temperature Pulse Rate 83 80 86 Respiratory 25 H 16 14 Rate Blood Pressure 127/78 145/92 135/87 06/23/20 06/23/20 06/23/20 14:15 14:30 14:45 Temperature Pulse Rate 68 88 88 Respiratory 21 15 19 Rate Blood Pressure 148/79 136/95 127/97 ED Medical Decision Making - Lab Data Result diagrams: 06/23/20 11:53 06/23/20 11:53 - EKG Data -: EKG Interpreted by Me EKG shows normal: sinus rhythm, axis, intervals, QRS complexes, ST-T waves Rate: normal - EKG Data Interpretation: no acute changes - Radiology Data Radiology results: report reviewed, image reviewed - Medical Decision Making Work-up is unremarkable. EKG shows no ST changes. Troponin is negative. Chest x-ray is normal. Vital signs are stable. Will discharge at this time. Outpatient follow-up advised. Return precautions given. Critical care attestation.: If time is entered above; I have spent that time in minutes in the direct care of this critically ill patient, excluding procedure time. ED Disposition Clinical Impression: Generalized weakness, Chest pain Disposition: - TO HOME OR SELFCARE Is pt being admited?: No Condition: Stable Instructions: Weakness, [id number], Chest Pain (ED) Prescriptions: Ondansetron [Zofran Odt] 4 mg PO Q8HR PRN #20 tab.rapdis PRN Reason: Vomiting Referrals: [facility] [Provider Group] - 3-5 Days [facility] [Outside] - 3-5 Days PRIMARY CARE, [Primary Care Provider] - 3-5 Days Time of Disposition: 14:52
[2020-06-23 12:29] LABS: Alanine Aminotransferase 10 units/L (7-56); Albumin 4.3 g/dL (3.9-5); Blood Urea Nitrogen 5 mg/dL (7-17); Calcium 9.6 mg/dL (8.4-10.2); Hemolysis Index 4
[2020-06-23 12:30] LABS: BUN/Creatinine Ratio 8
--- NOTE | 2020-06-23 13:01 | XRay Report ---
CHEST 2 VIEWS INDICATION / CLINICAL INFORMATION: Chest Pain. COMPARISON: 10/21/2019. FINDINGS: SUPPORT DEVICES: None. HEART / MEDIASTINUM: The heart size and pulmonary vasculature are normal. There is slight aortic tort uosity without aneurysm. LUNGS / PLEURA: No significant pulmonary or pleural abnormality. No pneumothorax. ADDITIONAL FINDINGS: Avascular necrosis versus old osteochondral injury involving the left superior h umeral head is stable. IMPRESSION:No acute abnormality or significant change. Signer Name: Kushal Arzola MD Signed: 06/23/2020 12:57 PM Workstation Name: [id number]
[2020-06-23 14:43] LABS: INR 1.01 (0.87-1.13); Partial Thromboplastin Time 23.7 Sec. (24.2-36.6)
[2020-06-23 15:03] VITALS: BP 127/97
== END 2020-06-23 15:03 | disposition home or self-care (01) ==
LOC: ED 11:34
DX: R53.1 Weakness (principal); R07.9 Chest pain, unspecified; I10 Essential (primary) hypertension; I25.2 Old myocardial infarction; F31.9 Bipolar disorder, unspecified; F20.9 Schizophrenia, unspecified
CPT/HCPCS: 36415; 71046; 80053; 83690; 83880; 84484; 85025; 85379; 85610; 85730; 93005; 99284